=== PATIENT | female | born 1975 | race Two or more races ===

== ENCOUNTER 2017-11-16 23:15 | Emergency (ER) | payer MEDICARE ==
[~2017-11-16] VITALS: Ht 149.9 cm; Wt 62.7 kg
[2017-11-17] MEDS ORDERED: SODIUM CHLORIDE FLUSH 10ML SYR IVF ONE
[2017-11-17 00:32] LABS: BASOPHILS # (AUTO) 0.15 x10^3/uL (0-0.1); BASOPHILS % (AUTO) 1 % (0-1); EOSINOPHILS # (AUTO) 0.29 x10^3/uL (0-0.4); EOSINOPHILS % (AUTO) 2 % (1-7); LYMPHOCYTES # (AUTO) 2.13 x10^3/uL (1-3.4); LYMPHOCYTES % (AUTO) 13 % (22-44); MD NO; MEAN CORPUSCULAR HEMOGLOBIN 22.4 pg (27.0-34.8); MEAN CORPUSCULAR VOLUME 72.3 fL (80-100); MEAN PLATELET VOLUME 8.2 fL (7.4-10.4); MONOCYTES % (AUTO) 4 % (2-9); NEUTROPHILS % (AUTO) 81 % (42-75); PLATELET COUNT 573 x10^3/uL (130-400); RED BLOOD COUNT 5.33 x10^6/uL (3.82-5.3); RED CELL DISTRIBUTION WIDTH 19.3 % (9.6-15.2)
[2017-11-17 00:40] LABS: CULTURE INDICATED? YES; MICROSCOPIC INDICATED
[2017-11-17 00:43] LABS: ALANINE AMINOTRANSFERASE 22 U/L (12-78); ALBUMIN 4.5 g/dL (3.4-5.0); ANION GAP 10 mmol/L (5-15); CALCIUM 8.7 mg/dL (8.5-10.1); CHLORIDE 109 mmol/L (98-107); CREATININE 0.67 mg/dL (0.55-1.02)
[2017-11-17 00:47] LABS: ALKALINE PHOSPHATASE 73 U/L (45-117); BILIRUBIN,TOTAL 0.4 mg/dL (0.2-1.0)
[2017-11-17] MEDS ORDERED: OMNIPAQUE 350 MG/ML, 100ML BOTTLE ONE (01:14)
[2017-11-17] MEDS ORDERED: ONDANSETRON ODT 4 MG ONE (01:59)
[2017-11-17] MEDS ORDERED: MORPHINE SULFATE 4 MG/ML, 1ML ONE (01:59)
[2017-11-17] MEDS ORDERED: MORPHINE SULFATE 4 MG/ML, 1ML IVPush PRN (02:00)
[2017-11-17] MEDS ORDERED: ONDANSETRON ODT 4 MG PO ONE (02:00)
[2017-11-17 03:04] LABS: CULTURE INDICATED? YES; MICROSCOPIC INDICATED
[2017-11-17 03:12] VITALS: BP 124/84
== END 2017-11-17 04:23 | disposition home or self-care (01) ==
LOC: ED 23:59
DX: N20.1 Calculus of ureter (principal); N20.2 Calculus of kidney with calculus of ureter; R19.7 Diarrhea, unspecified; Z85.3 Personal history of malignant neoplasm of breast
CPT/HCPCS: 36415; 74177; 80053; 81001; 84703; 85025; 87077; 87086; 96374; 99285; Q0162; Q9967; 87186